=== PATIENT | female | born 1985 | race Two or more races ===

== ENCOUNTER 2020-01-03 10:43 | Emergency (ER) | payer OTHER ==
[~2020-01-03] VITALS: Ht 160 cm; Wt 40.8 kg
[~2020-01-03 10:43] MED LIST: NO MEDS
--- NOTE | 2020-01-03 10:48 | NUR ---
sent by pmd for bradycardia and low o2 eval. denies chest pain/sob, to ER bed 9, hooked to monitor, HR at 106bpm, o2 sat at 97% upon arrival. Dr Irwin at bedside
--- NOTE | 2020-01-03 11:26 | NUR ---
Patient discharged to home in stable condition. Written and verbal after care instructions given. Patient verbalizes understanding of instruction.
[2020-01-03 11:27] VITALS: BP 109/72
== END 2020-01-03 11:28 | disposition home or self-care (01) ==
LOC: ER 10:46
DX: R00.1 Bradycardia, unspecified (principal)